=== PATIENT | female | born 1990 | race African-American/Black ===

== ENCOUNTER 2022-06-18 18:48 | Emergency (ER) | payer MEDICAID ==
[~2022-06-18] VITALS: Ht 160 cm; Wt 98.0 kg
[2022-06-18 20:34] VITALS: BP 145/88
== END 2022-06-19 01:15 | disposition left against medical advice (07) ==
LOC: ER 18:48
DX: R19.7 Diarrhea, unspecified (principal); R11.0 Nausea
CPT/HCPCS: 81025; 99282